=== PATIENT | male | born 1935 | race Caucasian/White ===

== ENCOUNTER 2016-07-18 23:01 | Inpatient (IN) | payer MEDICARE, BC ==
--- NOTE | ~2016-07-18 | HP ---
History And Physical [address] [address] [facility] [place]. [address] NAME: ALEXA ACOSTA JR : 33 STATUS : ADM IN PAT#: [id number] AGE: 81 ADM/REG DATE : 07/18/16 MR#: [id number] REPORT SERV DATE: 07/19/16 DICTATED BY: EMERSON GARZA DATE: 07/19/16 REPORT STATUS : Draft TRANSCRIBED BY: MODL DATE: 07/19/16 DATE OF ADMISSION: 07/18/2016 CHIEF COMPLAINT: An 81-year-old male presenting with right arm pain, swelling, and bruising. HISTORY OF PRESENTING ILLNESS: The patient's history was obtained through careful interview with the patient and , coupled with review of [facility] medical records and medical records obtained from [facility]. About a week ago, the patient was getting out of a recliner when suddenly he "felt something snap." He then noticed swelling and bruising in his right biceps muscle area and it has progressed and worsened over the last week. He feels as if his right biceps is "hot," but he has had no fevers or chills. He describes disorientation tonight, dizziness, lightheadedness, feeling "loopy and achy." He has felt lethargic, tired, and has had nausea, but no vomiting. He describes right arm pain in the biceps area that radiates down to his wrist, exacerbated by touching, 6 to 7 out of 10 severity. About six days ago, the patient was placed on Keflex and Bactrim after the swelling began, but it has not really improved his symptoms at all. About two weeks ago, he developed increasing sciatica and lower back pain, and from his primary care physician, was placed on increased steroid dosed with a taper, apparently, he was started on about 60 mg of prednisone a day and by the time of the patient's injury, he was down to about 40 mg per day and by the time of this dictation and admission, the patient's steroid dose was down to about 10 mg per day. REVIEW OF SYSTEMS: Otherwise, a 14-point review of systems was obtained and was negative. PAST MEDICAL HISTORY: 1. Myasthenia gravis, on Mestinon. 2. Parkinson's disease. 3. Dysphagia. 4. Positive WOLF 1:160 titer with speckled pattern in 2009. 5. Hypertension. 6. Gastroesophageal reflux disorder, followed by Dr. Bautista. 7. Multiple strokes, on chronic Plavix. 8. Supraventricular tachycardia. 9. Elevated cholesterol. 10.Previous pneumonia with MSSA. PAST SURGICAL HISTORY: History And Physical [place] [address] [place]. [address] NAME: ALEXA ACOSTA JR : 33 STATUS : ADM IN PAT#: [id number] AGE: 81 ADM/REG DATE : 07/18/16 MR#: [id number] REPORT SERV DATE: 07/19/16 DICTATED BY: EMERSON GARZA DATE: 07/19/16 REPORT STATUS : Draft TRANSCRIBED BY: SANJAY DATE: 07/19/16 1. Cholecystectomy. 2. Umbilical hernia repair. 3. Left shoulder surgery. 4. Left knee surgery. ALLERGIES: CODEINE. SOCIAL HISTORY: No tobacco abuse. Occasionally drinks beer. Is . Has three children, three grandsons. Retired construction equipment mechanic. Lives in [place], [place]. FAMILY HISTORY: Mother and father with stroke. Father with Parkinson's disease. Sister of cancer. CURRENT MEDICATIONS: Include Plavix 75 mg p.o. daily, carbidopa and levodopa p.o. four times a day, hydrocodone p.r.n., Avapro 300 mg p.o. daily, metformin 500 mg p.o. b.i.d., potassium 20 mEq p.o. daily, prednisone 10 mg p.o. daily, Mestinon 60 mg p.o. four times a day, Azilect 1 mg p.o. daily. PHYSICAL EXAMINATION: VITAL SIGNS: Temperature 98.7, pulse 83, blood pressure 157/85, respiratory rate 18, and O2 saturation 99% on 2 L nasal cannula. GENERAL: An ill-appearing male, in evidence of distress secondary to the discomfort in his right arm. HEENT: Pupils equal, round, and reactive to light. No conjunctival pallor. No scleral icterus. Nares are patent. Oropharynx is clear of obstruction. Moist mucous membranes. NECK: Trachea midline. No thyromegaly. LYMPH: No cervical lymphadenopathy. No supraclavicular lymphadenopathy. No right axillary lymphadenopathy. RESPIRATORY: Clear to auscultation at bases. No wheezes, rales, or rhonchi. Normal respiratory effort. CARDIOVASCULAR: Regular rate and rhythm. No murmurs, rubs, or gallops. No extremity edema is appreciated. ABDOMEN: Soft, nontender, nondistended. Normal bowel sounds auscultated throughout. No hepatosplenomegaly. DERMATOLOGICAL: The patient has extensive bruising throughout his right arm and around his right biceps. I do not appreciate any heat, but there is exquisite tenderness and an underlying fluctuance felt within his biceps muscle with slight deformity, otherwise warm and dry extremities. No pallor. No cyanosis. PSYCHIATRIC: Normal affect. Good mood. Alert and oriented x3. LABORATORY DATA: White blood cell count 9.4, hemoglobin 11, hematocrit 35, platelets 407. Sodium 141, potassium 4.3, chloride 102, bicarb 28, BUN 16, creatinine 1.0, glucose 82. INR 1.1. Liver enzymes, within normal limits. STUDIES: A CT scan of the chest showed no acute abnormality. No pulmonary embolism, but a CT scan of the right upper extremity showed no arterial or venous thrombus, but a large multiloculated fluid collection within the biceps muscle measuring 15 cm x 3 cm x 4 cm. It History And Physical [address] [address] NAME: ALEXA ACOSTA JR : 33 STATUS : ADM IN [facility]#: [id number] AGE: 81 ADM/REG DATE : 07/18/16 MR#: [id number] REPORT SERV DATE: 07/19/16 DICTATED BY: EMERSON GARZA DATE: 07/19/16 REPORT STATUS : Draft TRANSCRIBED BY: SANJAY DATE: 07/19/16 has the appearance of an abscess according to the radiologist at [facility]. ASSESSMENT AND PLAN: 1. Right biceps abscess or fluid collection. A 15 cm x 3 cm x 4 cm loculated collection. Blood cultures were obtained at [facility], and the patient was started on vancomycin and IV Zosyn. We will consult Dr. Chowdhury, orthopedic surgeon, whom I discussed the case over the phone with. The differential diagnosis, which may be more likely in fact, is a large hematoma. 2. Myasthenia gravis. Continue medications. 3. Parkinson's disease. Continue medications. 4. History of strokes. We will be holding Plavix though because of bleeding and possible surgical intervention. 5. History of difficult intubation. KPL/MODL Emerson Garza M.D. / [id number] CC: MD Deniz Hunt M.D. Cecil Breetzke, MD
--- NOTE | ~2016-07-18 | CN ---
Consultation Report [facility] [address] [place]. [address] NAME: ALEXA ACOSTA JR : 33 STATUS : DIS IN PAT#: [id number] AGE: 81 ADM/REG DATE : 07/18/16 MR#: [id number] REPORT SERV DATE: 07/19/16 DICTATED BY: JASON CHOWDHURY DATE: 07/19/16 REPORT STATUS : Draft TRANSCRIBED BY: MODCarrie DATE: 07/19/16 CONSULTATION DATE OF CONSULTATION: CHIEF COMPLAINT: Right arm pain and swelling. HISTORY OF PRESENT ILLNESS: This is a pleasant 81-year-old male with myasthenia gravis and history of this L-spine fracture in the past. He had high-dose steroids about a week ago for a bout of sciatica, and when he reached up with his arm from the recliner, he felt a snap in his arm, he then had bleeding and swelling in the arm, he is on Plavix. He had immediate pain in the biceps, had some warmth feeling down the arm. He also had a feeling of lightheadedness and dizziness at the time which prompted admission to the ER. He was scanned, and they found some swelling in the arm, and I was consulted to evaluate and treat to rule out an abscess. He has had Keflex and Bactrim. PAST MEDICAL HISTORY: Myasthenia gravis, Parkinson's dysphasia, WOLF titer 1 to 160, hypertension, GERD, strokes on Plavix, supraventricular tachycardia, cholesterol, and previous pneumonia with MSSA. PAST SURGICAL HISTORY: Cholecystectomy, umbilical hernia repair, left shoulder surgery, and left total knee replacement. ALLERGIES: CODEINE. FAMILY HISTORY: Parkinson's. SOCIAL HISTORY: Denied tobacco, alcohol, or drug use. 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 MEDICATIONS: Plavix 75, carbidopa and levodopa 4 times a day, hydrocodone, Avapro 300, metformin 500, potassium 20 mEq, prednisone 10 mg p.o. daily, and Mestinon 60. REVIEW OF SYSTEMS: Negative for chest pain, shortness of breath, fevers, chills, weight loss, abdominal, GI, or abnormalities. PHYSICAL EXAMINATION: VITAL SIGNS: Temperature is 98.4, pulse 84, respirations 20, and BP 160/80. GENERAL: He is alert and oriented x3. No acute distress. Pleasant and cooperative affect. HEENT: Normocephalic, atraumatic. Extraocular movements are intact. There is no scleral icterus. Oropharynx is clear. NECK: Supple. Nontender. Trachea is midline. No JVD. CARDIOVASCULAR: Regular rate and rhythm. Consultation Report [facility] [address] [facility] [address] NAME: ALEXA ACOSTA JR : 33 STATUS : DIS IN PAT#: [id number] AGE: 81 ADM/REG DATE : 07/18/16 MR#: [id number] REPORT SERV DATE: 07/19/16 DICTATED BY: JASON CHOWDHURY DATE: 07/19/16 REPORT STATUS : Draft TRANSCRIBED BY: SANJAY DATE: 07/19/16 ABDOMEN: Soft, nontender. CHEST: Clear. SKIN: Warm and dry. ABDOMEN: Soft. No organomegaly. NEUROLOGICALLY: There is a slight tremor of the left hand consistent with Parkinson's. He has a well-healed left total knee incision with about a 10-degree contracture. He has normal motor function in bilateral lower extremities. No pain with range of motion of the hips and knees. The right upper extremity demonstrates bruising and ecchymosis down into the forearm. He has no pain with range of motion about 20 at 120 elbow motion pain-free. There is a deformity in the biceps area, really no fluctuance or tenderness. He has full active and passive range of motion of the shoulder 5 cuff strength. Negative Neer and Cardona. LABORATORY DATA: CBC shows white count of 8, H and H are 10 and 33, and platelets 379. Sodium 143, potassium 4.2, BUN and creatinine are 14 and 0.77, albumin 3, alkaline phosphatase 58, CPK 70, troponin less than 0.02. I was told there was a scan showing edema of the arm. I do not see a CT scan in our system today. ASSESSMENT: Likely spontaneous long head of biceps rupture with some slightly increased bleeding due to anticoagulation in this 81-year-old male. He had high-dose steroids recently. He is feeling much better today and all of his symptoms have resolved. He is clearly not septic at this phase. This clinical exam is completely consistent with a biceps rupture which would be treated nonoperatively. I think all of the bruising down the arm is simply blood products migrating under gravity. He does have a sciatic nerve with problem which caused essentially and directly caused this admission. We are going to try to set him up with Dr. Martell for followup for perhaps an injection. He does have a history of L-spine fracture and that could be worked up as an outpatient. We will check him back in one to two weeks as an outpatient for continuity. EDITH/MODCarrie Jason Chowdhury M.D. / [id number] CC: Nguyễn Dudley MD UNKNOWN
--- NOTE | ~2016-07-18 | DS ---
Discharge Summary [address]. [address] NAME: ALEXA LOPEZ JR : 31 STATUS : DIS IN PAT#: [id number] AGE: 81 ADM/REG DATE : 07/18/16 MR#: [id number] REPORT SERV DATE: 07/19/16 DICTATED BY: GOLDEI PALMER DATE: 07/19/16 REPORT STATUS : Draft TRANSCRIBED BY: MODCarrie DATE: 07/19/16 ADMISSION DATE: 07/18/2016 DISCHARGE DATE: 07/19/2016 HISTORY OF PRESENT ILLNESS: Mr. Lopez is an 81-year-old male with a history of Parkinson's disease, hypertension, diabetes type 2, who presented to the hospital with a complaint of right arm pain and swelling. For further details, please refer to H and P dictated by Dr. Ocasio on 07/19/2016. HOSPITAL COURSE: Upon presentation to the hospital, given his presenting complaint, Orthopedic Surgery was consulted. Per Orthopedic surgery evaluation, there is no indication for surgical intervention at this point. The patient has remained hemodynamically stable with no other complaints. Given evaluation by Surgery, would plan for outpatient followup, and the patient will subsequently be discharged today. Plan has been discussed with the patient, who voices understanding and is agreeable with this plan. DISCHARGE DIAGNOSES: 1. Right biceps tendon rupture. 2. Hematoma. 3. Parkinson's disease. 4. Myasthenia gravis. 5. Hypertension. 6. Diabetes type 2. DISPOSITION: The patient will be discharged home. ACTIVITY: As tolerated. DIET: Diabetic diet. Greater than 30 minutes was spent on chart review, providing counseling, medication reconciliation. DICTATED BY: MD NATTY Hunt/SANJAY Goldie Palmer MD / [id number] CC: Discharge Summary [place] [address] [place]. [address] NAME: ALEXA LOPEZ JR : 31 STATUS : DIS IN PAT#: [id number] AGE: 81 ADM/REG DATE : 07/18/16 MR#: [id number] REPORT SERV DATE: 07/19/16 DICTATED BY: GOLDIE PALMER DATE: 07/19/16 REPORT STATUS : Draft TRANSCRIBED BY: MODL DATE: 07/19/16 Goldie Palmer MD
[~2016-07-18 23:01] MED LIST: AGGRENOX PO; ALBUTEROL5 INH; ASA5GR PO; ASAB PO; CARD30 PO; DITROXL5 PO; DSS PO; FLEX PO; FLONASE NAS; FLONASE0.05 %; HUMI PO; KLOR-CON 88 MEQ PO; L40 PO; LORT7 PO; MOBIC15 MG PO; NORV5 PO; P10 PO; PRED50B PO; PRILO PO; PROTONIX PO; PYRID60 PO; ZANTAC150 MG PO; ZYRTEC ALLGY10 MG PO
[2016-07-18] MEDS ORDERED: P10 PO (23:34)
[2016-07-18] MEDS ORDERED: SIN25 PO (23:39)
[2016-07-18] MEDS ORDERED: PLAVIX PO (23:42)
[2016-07-18] MEDS ORDERED: GLUCPH PO (23:42)
[2016-07-18] MEDS ORDERED: AVAPRO300 MG PO (23:48)
[2016-07-18] MEDS ORDERED: AZILECT1 MG PO (23:56)
[2016-07-18] MEDS ORDERED: NORCO1 TA2 PO (23:57)
[2016-07-19 06:13] LABS: BASOPHILS 0.3 %; BASOPHILS ABSOLUTE 0.02 10/3/uL (0.0-0.16); EOSINOPHILS 0.8 %; EOSINOPHILS ABSOLUTE 0.06 10/3/uL (0.0-0.53); HEMATOCRIT 33.7 % (40.0-51.0); HEMOGLOBIN 10.9 g/dL (13.6-17.8); IMMATURE GRANULOCYTES 0.6 %; IMMATURE GRANULOCYTES ABSOLUTE 0.05 10/3/uL (0.0-0.11); LYMPHOCYTES 23.1 %; LYMPHOCYTES ABSOLUTE 1.84 10/3/uL (0.67-4.30); MANUAL DIFF NO %; MEAN CORPUS HGB CONC 32.3 g/dL (32.0-36.0); MEAN CORPUSCULAR HEMOGLOB 30.6 pg (26.0-34.0); MEAN CORPUSCULAR VOLUME 94.7 fL (80-100); MEAN PLATELET VOLUME 8.5 fL (9.2-13.0); MONOCYTES 11.4 %; MONOCYTES ABSOLUTE 0.91 10/3/uL (0.21-1.20); NEUTROPHILS 63.8 %; NEUTROPHILS ABSOLUTE 5.09 10/3/uL (2.02-8.40); PLATELET COUNT 379 10/3/uL (150-400); RED CELL COUNT 3.56 10/6/uL (4.7-6.1)
[2016-07-19 06:20] LABS: PARTIAL THROMBO TIME 27.8 SEC (22.5-37.2)
[2016-07-19 06:21] LABS: INTERNATIONAL NORMAL RATI 1.1 UNITS (-); PROTIME (NOT ORD) 14.4 SEC (12.0-14.5)
[2016-07-19 06:39] LABS: BUN (BLOOD UREA NITROGEN) 14 MG/DL (6-23); CALCIUM, SERUM 8.5 MG/DL (8.5-10.4); CHLORIDE, SERUM 109 MMOL/L (96-112); CO2 (CARBON DIOXIDE) 29 MMOL/L (24-34); CREATININE 0.77 MG/DL (0.70-1.30); GFR AFRICAN AMERICAN 97 ML/MIN (>=60); GFR NON AFRICAN AMERICAN 84 ML/MIN (>=60); GLUCOSE, SERUM 88 MG/DL (60-99); POTASSIUM, SERUM 4.2 MMOL/L (3.5-5.3); SGOT(AST) 24 U/L (5-40); SGPT(ALT) 11 U/L (5-65); SODIUM, SERUM 143 MMOL/L (135-148); TOTAL BILIRUBIN 0.7 MG/DL (0-1.2); TOTAL PROTEIN 5.5 G/DL (6.0-8.5); TROPONIN I <0.02 NG/ML (<0.05)
[2016-07-19 06:40] LABS: A/G RATIO 1.2 (0.7-1.9); ALKALINE PHOSPHATASE 58 U/L (45-117); C-REACTIVE PROTEIN < 2.9 MG/L (<8.0); CK-MB 1.3 NG/ML; CPK 70 U/L (0-200); GLOBULIN 2.5 G/DL (2.5-4.1)
[2016-07-19 07:38] LABS: SED RATE 11 MM/HR (0-15)
[2016-11-19] MEDS ORDERED: SIN25 PO (16:36)
[2016-11-19] MEDS ORDERED: PROBIOTIC PO (16:38)
[2016-11-19] MEDS ORDERED: VITAMIN B-2100 MG PO (16:39)
[2016-11-19] MEDS ORDERED: XALAT OPH (17:13)
[2016-11-23] MEDS ORDERED: SIN25 PO (08:43)
[2016-11-23] MEDS ORDERED: SIN-CR PO (08:44)
== END 2016-07-19 12:01 | disposition home or self-care (01) | DRG 558 ==
LOC: 5SO 23:01
PROVIDERS: Hospitalist
DX: M66.821 Spontaneous rupture of other tendons, right upper arm (principal); G20 Parkinson's disease; G70.00 Myasthenia gravis without (acute) exacerbation; I10 Essential (primary) hypertension; E11.9 Type 2 diabetes mellitus without complications; K21.9 Gastro-esophageal reflux disease without esophagitis; E78.00 Pure hypercholesterolemia, unspecified; S40.021A Contusion of right upper arm, initial encounter; Z79.899 Other long term (current) drug therapy; Z86.73 Personal history of transient ischemic attack (TIA), and cerebral infarction without residual deficits; Z79.02 Long term (current) use of antithrombotics/antiplatelets; Z87.01 Personal history of pneumonia (recurrent); Z90.49 Acquired absence of other specified parts of digestive tract; Z98.890 Other specified postprocedural states; Z88.5 Allergy status to narcotic agent; Z82.3 Family history of stroke; Z80.8 Family history of malignant neoplasm of other organs or systems
CPT/HCPCS: 80053; 82550; 82553; 82962; 83036; 83735; 84443; 84484; 85025; 85610; 85652; 85730; 86140; A9270-GY; J2543; J3370